=== PATIENT | male | born 1945 | race Two or more races ===

== ENCOUNTER 2017-01-02 21:27 | Emergency (ER) | payer MEDICARE, OTHER ==
[~2017-01-02] VITALS: Ht 172.7 cm; Wt 79.4 kg
[~2017-01-02 21:27] MED LIST: ESOM40CA39; SUCR1TAB
[2017-01-02 22:06] VITALS: BP 106/53
== END 2017-01-02 23:02 | disposition home or self-care (01) ==
LOC: ER 21:29
DX: S61.412A Laceration without foreign body of left hand, initial encounter (principal); M19.90 Unspecified osteoarthritis, unspecified site; W25.XXXA Contact with sharp glass, initial encounter; Y93.89 Activity, other specified; Y99.8 Other external cause status; Y92.89 Other specified places as the place of occurrence of the external cause
CPT/HCPCS: 12002